=== PATIENT | female | born 1950 | race Caucasian/White ===

== ENCOUNTER → 2016-06-05 | Outpatient (CLI) | payer OTHER ==
[~2016-06-05] MED LIST: ADVIN50050 INH; ALBUAER2 INH; CHOL100027 PO; CLTP PO; DAPA1TAB2 PO; LISI-461 PO; METF1000 PO; PRLSR20 PO; SNG10 PO; SYN100 PO; WARF2TAB PO; ZCRT/40 PO
== END | disposition home or self-care (01) ==
LOC: C.RDSM 09:25
PROVIDERS: ATTEND Physical Medicine & Rehabilitation Sports Medicine
DX: M17.0 Bilateral primary osteoarthritis of knee (principal); Z96.653 Presence of artificial knee joint, bilateral

== ENCOUNTER → 2016-09-07 | Outpatient (CLI) | payer OTHER ==
[~2016-09-07] MED LIST changes: -DAPA1TAB2 PO; +DAPA1TAB8 PO
[2016-09-07 10:03] LABS: ESTIMATED AVERAGE GLUCOSE 169 mg/dl; HA1C FLAG Normal (Normal)
[2016-09-07 10:13] LABS: ALT/SGPT 36 U/L (12-78); AST/SGOT 21 U/L (15-37); BLOOD UREA NITROGEN 21 mg/dl (7-18); BUN/CREATININE RATIO 26.7 (10-20); CALCIUM 9.3 mg/dl (8.5-10.1); CARBON DIOXIDE 30 mmol/L (21-32); CHLORIDE 104 mmol/L (98-107); CREATININE 0.78 mg/dl (0.60-1.20); GLUCOSE 137 mg/dl (70-99); POTASSIUM 4.2 mmol/L (3.5-5.1); SODIUM 142 mmol/L (136-145)
[2016-09-07 10:23] LABS: THYROID STIMULATING HORMONE 0.604 uIu/ml (0.300-4.500)
== END | disposition home or self-care (01) ==
LOC: C.LAB 07:03
DX: E11.9 Type 2 diabetes mellitus without complications (principal); I10 Essential (primary) hypertension; E78.5 Hyperlipidemia, unspecified; E03.9 Hypothyroidism, unspecified; M85.80 Other specified disorders of bone density and structure, unspecified site

== ENCOUNTER → 2016-11-21 | Outpatient (CLI) | payer OTHER ==
[~2016-11-21] MED LIST changes: +DAPA1TAB2 PO; -DAPA1TAB8 PO
== END | disposition home or self-care (01) ==
LOC: C.PAPS 14:42
PROVIDERS: ATTEND Nurse Practitioner Family
DX: Z12.4 Encounter for screening for malignant neoplasm of cervix (principal); Z78.0 Asymptomatic menopausal state

== ENCOUNTER → 2017-03-03 | Outpatient (CLI) | payer OTHER ==
[~2017-03-03] MED LIST changes: -DAPA1TAB2 PO; +DAPA1TAB8 PO
[2017-03-03 08:21] LABS: ALT/SGPT 46 U/L (12-78); AST/SGOT 24 U/L (15-37); BLOOD UREA NITROGEN 25 mg/dl (7-18); BUN/CREATININE RATIO 26.4 (10-20); CALCIUM 9.8 mg/dl (8.5-10.1); CARBON DIOXIDE 28 mmol/L (21-32); CHLORIDE 102 mmol/L (98-107); CHOLESTEROL 203 mg/dl (0-200); CREATININE 0.94 mg/dl (0.60-1.20); GLUCOSE 147 mg/dl (70-99); POTASSIUM 4.2 mmol/L (3.5-5.1); SODIUM 139 mmol/L (136-145); TRIGLYCERIDES 260 mg/dl (0-150); VERY LOW DENSITY LIPOPROT CALC 52 mg/dl
[2017-03-03 08:25] LABS: CHOLESTEROL/HDL RATIO 4.2; HDL CHOLESTEROL 48 mg/dl; LDL CHOLESTEROL CALCULATED 103 mg/dl
[2017-03-03 08:37] LABS: ESTIMATED AVERAGE GLUCOSE 174 mg/dl; HA1C FLAG Normal (Normal)
== END | disposition home or self-care (01) ==
LOC: C.LAB 06:56
DX: E78.5 Hyperlipidemia, unspecified (principal); E55.9 Vitamin D deficiency, unspecified; E11.9 Type 2 diabetes mellitus without complications

== ENCOUNTER → 2017-06-11 | Outpatient (CLI) | payer OTHER | END | disposition home or self-care (01) | LOC: C.RDSM 08:00 | PROVIDERS: ATTEND Physical Medicine & Rehabilitation Sports Medicine | DX: Z96.653 Presence of artificial knee joint, bilateral (principal); Z88.5 Allergy status to narcotic agent; Z88.6 Allergy status to analgesic agent; Z88.0 Allergy status to penicillin; Z91.041 Radiographic dye allergy status ==

== ENCOUNTER → 2017-09-01 | Outpatient (CLI) | payer OTHER ==
[2017-09-01 08:56] LABS: BASO % 0.6 %; BASO ABS # 0.04 K/uL (0-0.2); EOS % 4.6 %; EOS ABS # 0.29 K/uL (0-0.5); HEMATOCRIT 37.7 % (37-47); HEMOGLOBIN 12.4 g/dL (12.0-16.0); IG# 0.02 K/uL (0.00-0.02); LYMPH % 28.8 %; MEAN CELL VOLUME 93.5 fL (80-100); MEAN CORPUSCULAR HEMOGLOBIN 30.8 pg (25-34); MEAN CORPUSCULAR HGB CONC 32.9 g/dl (32-36); MEAN PLATELET VOLUME 9.7 fL (7.4-10.4); MONO % 7.3 %; MONO ABS # 0.46 K/uL (0.11-0.59); NEUT % 58.4 %; NEUT ABS # 3.65 K/uL (1.4-6.5); PLATELET COUNT 275 K/uL (130-400); RED CELL DISTRIBUTION WIDTH CV 14.6 % (11.5-14.5); RED CELL DISTRIBUTION WIDTH SD 49.9 fL (36.4-46.3); WHITE BLOOD COUNT 6.26 K/uL (4.8-10.8)
[2017-09-01 09:34] LABS: ALT/SGPT 35 U/L (12-78); AST/SGOT 21 U/L (15-37); BLOOD UREA NITROGEN 20 mg/dl (7-18); CALCIUM 8.9 mg/dl (8.5-10.1); CARBON DIOXIDE 30 mmol/L (21-32); CREATININE 0.92 mg/dl (0.60-1.20); GLUCOSE 170 mg/dl (70-99); SODIUM 139 mmol/L (136-145)
[2017-09-01 09:35] LABS: CREATININE RANDOM URINE 58.5 mg/dl
[2017-09-01 10:37] LABS: HEMOGLOBIN A1C 7.9 % (4.5-5.6)
== END | disposition home or self-care (01) ==
LOC: C.LAB 08:12
DX: E11.9 Type 2 diabetes mellitus without complications (principal); I10 Essential (primary) hypertension; E78.5 Hyperlipidemia, unspecified